=== PATIENT | male | born 1960 | race Caucasian/White ===

== ENCOUNTER → 2020-06-03 | Outpatient (CLI) | payer MEDICARE ==
[~2020-06-03] MED LIST: OMNIPAQUE 350 MG/ML, 150 ML BOTTLE ONE
== END | disposition home or self-care (01) ==
LOC: CFH 09:38
PROVIDERS: ATTEND Internal Medicine Cardiovascular Disease
DX: I48.91 Unspecified atrial fibrillation (principal); M25.70 Osteophyte, unspecified joint
CPT/HCPCS: 71046; 75572; 82565; Q9967

== ENCOUNTER → 2020-06-03 | Outpatient (CLI) | payer MEDICARE ==
[~2020-06-03] MED LIST changes: +ATOR20TA37 PO; +DILT120C64 PO; +FURO20TA3 PO; +METO25TA2 PO; -OMNIPAQUE 350 MG/ML, 150 ML BOTTLE ONE; +RIVA20TA PO; +TAMS-11 PO
== END | disposition home or self-care (01) ==
LOC: STAR 09:35
PROVIDERS: ATTEND Anesthesiology
DX: Z01.812 Encounter for preprocedural laboratory examination (principal); Z20.828 Contact with and (suspected) exposure to other viral communicable diseases
CPT/HCPCS: 36415; 87635

== ENCOUNTER 2020-06-09 05:53 | Observation (INO) | payer MEDICARE ==
[~2020-06-09] VITALS: Ht 195.6 cm; Wt 153.9 kg
[2020-06-09] MEDS ORDERED: SODIUM CHLORIDE 0.9% 1,000 ML IV SCH (06:21)
[2020-06-09] MEDS ORDERED: ATOR20TA37 PO (06:27)
[2020-06-09] MEDS ORDERED: METO25TA2 PO (06:27)
[2020-06-09] MEDS ORDERED: TAMS-11 PO (06:27)
[2020-06-09] MEDS ORDERED: RIVA20TA PO (06:27)
[2020-06-09] MEDS ORDERED: DILT120C64 PO (06:27)
[2020-06-09] MEDS ORDERED: FURO20TA3 PO (06:27)
[2020-06-09] MEDS ORDERED: SODIUM CHLORIDE 0.9% 1,000 ML IV ONE (06:30)
[2020-06-09 06:48] VITALS: BP 148/78
[2020-06-09] MEDS ORDERED: PLEASE ENTER HEIGHT AND WEIGHT MC SCH (07:00)
[2020-06-09 07:41] LABS: BASOPHILS # (AUTO) 0.06 x10^3/uL (0-0.1); BASOPHILS % (AUTO) 1 % (0-1); EOSINOPHILS # (AUTO) 0.21 x10^3/uL (0-0.4); EOSINOPHILS % (AUTO) 2 % (1-7); LYMPHOCYTES # (AUTO) 3.96 x10^3/uL (1-3.4); LYMPHOCYTES % (AUTO) 41 % (22-44); MD NO; MEAN CORPUSCULAR HEMOGLOBIN 30.6 pg (27.5-34.5); MEAN CORPUSCULAR HGB CONC 33.1 g/dL (33.2-36.2); MEAN CORPUSCULAR VOLUME 92.6 fL (81-97); MEAN PLATELET VOLUME 8.5 fL (7.4-10.4); MONOCYTES # (AUTO) 1.01 x10^3/uL (0.2-0.8); MONOCYTES % (AUTO) 11 % (2-9); NEUTROPHILS # (AUTO) 4.45 x10^3/uL (1.8-6.8); NEUTROPHILS % (AUTO) 46 % (42-75); PLATELET COUNT 182 x10^3/uL (130-400); RED BLOOD COUNT 4.74 x10^6/uL (4.38-5.82); RED CELL DISTRIBUTION WIDTH 14.4 % (9.4-14.8)
[2020-06-09] MEDS ORDERED: MIDAZOLAM 1 MG/ML, 2ML ONE (07:44)
[2020-06-09] MEDS ORDERED: FENTANYL PF 250 MCG/5ML ONE (07:45)
[2020-06-09 07:48] LABS: ANION GAP 7 mmol/L (5-15); CALCIUM 8.2 mg/dL (8.5-10.1); CHLORIDE 111 mmol/L (98-107); CREATININE 0.78 mg/dL (0.7-1.3)
[2020-06-09] MEDS ORDERED: ACETAMINOPHEN 325 MG TABLET PO PRN (08:00)
[2020-06-09] MEDS ORDERED: FENTANYL PF 100 MCG/2ML IV PRN (08:00)
[2020-06-09] MEDS ORDERED: hydrALAzine 20 MG/ML, 1ML IV PRN (08:00)
[2020-06-09] MEDS ORDERED: OXYcodone 5 MG/5 ML ORAL.SOL UDC PO PRN (08:00)
[2020-06-09] MEDS ORDERED: PROMETHAZINE 25 MG/ML, 1ML IVPush PRN (08:00)
[2020-06-09] MEDS ORDERED: MEPERIDINE/PF 25MG/0.5ML IVPush PRN (08:00)
[2020-06-09] MEDS ORDERED: EPHEDRINE 50 MG/ML, 1ML IVPush PRN (08:00)
[2020-06-09] MEDS ORDERED: ONDANSETRON 2MG/ML, 2ML IVPush PRN (08:00)
[2020-06-09] MEDS ORDERED: LABETALOL 5MG/ML, 20ML IV PRN (08:00)
[2020-06-09] MEDS ORDERED: HEPARIN 1,000 UNITS/ML, 10ML ONE ×3 (08:10→09:07)
[2020-06-09] MEDS ORDERED: PHENYLEPHRINE 10 MG/ML ONE (08:10)
[2020-06-09] MEDS ORDERED: LIDOCAINE 1%, 20ML ONE (08:14)
[2020-06-09] MEDS ORDERED: ONDANSETRON 2MG/ML, 2ML ONE (08:21)
[2020-06-09] MEDS ORDERED: SUGAMMADEX 200 MG/2 ML IVPush ONE (08:21)
[2020-06-09] MEDS ORDERED: DEXAMETHASONE 4 MG/ML, 1ML ONE (08:21)
[2020-06-09] MEDS ORDERED: SUCCINYLCHOLINE 20 MG/ML, 10ML ONE (08:21)
[2020-06-09] MEDS ORDERED: ROCURONIUM 10MG/ML,5ML ONE (08:21)
[2020-06-09] MEDS ORDERED: PROPOFOL 10 MG/ML, 20ML ONE (08:21)
[2020-06-09] MEDS ORDERED: LIDOCAINE-MPF 2% ,5ML ONE (09:07)
[2020-06-09] MEDS ORDERED: ISOPROTERENOL 0.2MG/ML, 5ML ONE (09:14)
[2020-06-09] MEDS ORDERED: RIVAROXABAN 20 MG TABLET PO SCH (12:00)
[2020-06-09] MEDS ORDERED: MORPHINE SULFATE 4 MG/ML, 1ML ONE (13:07)
[2020-06-09] MEDS ORDERED: OXYcodone 5 MG/5 ML ORAL.SOL UDC ONE (13:07)
[2020-06-09] MEDS: RIVAROXABAN 20 MG TABLET PO SCH (13:20)
[2020-06-09] MEDS ORDERED: morphine SULFATE 10 MG/ML, 1ML IVPush PRN (13:30)
[2020-06-09 19:17] VITALS: BP 145/76
[2020-06-09] MEDS: COLCHICINE 0.6 MG CAPSULE PO SCH (20:09)
[2020-06-10 00:14] VITALS: BP 114/58
[2020-06-10 08:30] VITALS: BP 146/73
[2020-06-10] MEDS: COLCHICINE 0.6 MG CAPSULE PO SCH (08:34)
[2020-06-10] MEDS: RIVAROXABAN 20 MG TABLET PO SCH (08:34)
[2020-06-10] MEDS ORDERED: COLC0.6C3 PO (08:47)
[2020-06-10] MEDS ORDERED: DILTIAZEM 120 MG CAP.ER.24H PO SCH (09:00)
[2020-06-10] MEDS ORDERED: FUROSEMIDE 20 MG TABLET PO SCH (09:00)
[2020-06-10] MEDS ORDERED: TAMSULOSIN 0.4 MG CAP.ER.24H PO SCH (09:00)
[2020-06-10] MEDS ORDERED: ATORVASTATIN 20 MG TABLET PO SCH (09:00)
[2020-06-10] MEDS ORDERED: METOPROLOL SUCCINATE 25 MG TAB.ER.24H PO SCH (09:00)
== END 2020-06-10 10:40 | disposition home or self-care (01) ==
LOC: CACL 05:53 → ORIP 11:56 → 5SO 13:42 → DCLOUNGE 06-10 10:32
PROVIDERS: ADMIT Internal Medicine Cardiovascular Disease; ATTEND Internal Medicine Cardiovascular Disease
DX: I48.91 Unspecified atrial fibrillation (principal); I48.3 Typical atrial flutter; I10 Essential (primary) hypertension; E78.5 Hyperlipidemia, unspecified; G47.30 Sleep apnea, unspecified; F15.10 Other stimulant abuse, uncomplicated; F12.10 Cannabis abuse, uncomplicated; Z79.899 Other long term (current) drug therapy
CPT/HCPCS: 36415; 80048; 85025; 85347; 93306; 93312; 93321; 93325; 93613; 93655; 93656; 93662; C1730; C1732; C1759; C1766; C1893; C1894; G0378; J0330; J1100; J1644; J2250; J2270; J2370; J2405; J2704; J3010; J3490

== ENCOUNTER 2020-09-01 09:56 | Day surgery (SDC) | payer MEDICARE ==
[~2020-09-01] VITALS: Ht 195.6 cm; Wt 150.5 kg
[~2020-09-01 09:56] MED LIST changes: +COLC0.6C3 PO
[2020-09-01 10:45] VITALS: BP 129/59
[2020-09-01 10:58] LABS: BASOPHILS % (AUTO) 1 % (0-1); EOSINOPHILS % (AUTO) 2 % (1-7); LYMPHOCYTES % (AUTO) 42 % (22-44); MEAN CORPUSCULAR HEMOGLOBIN 31.9 pg (27.5-34.5); MEAN CORPUSCULAR HGB CONC 34.3 g/dL (33.2-36.2); MONOCYTES % (AUTO) 9 % (2-9); NEUTROPHILS % (AUTO) 47 % (42-75); PLATELET COUNT 192 x10^3/uL (130-400); RED BLOOD COUNT 5.13 x10^6/uL (4.38-5.82); RED CELL DISTRIBUTION WIDTH 12.7 % (9.4-14.8)
[2020-09-01 10:59] LABS: MD NO
[2020-09-01 11:09] LABS: ANION GAP 6 mmol/L (5-15); CALCIUM 8.8 mg/dL (8.5-10.1); CHLORIDE 109 mmol/L (98-107); CREATININE 0.93 mg/dL (0.7-1.3)
[2020-09-01] MEDS ORDERED: PROPOFOL 10 MG/ML, 20ML ONE (11:38)
== END 2020-09-01 12:46 | disposition home or self-care (01) ==
LOC: CACL 09:56
PROVIDERS: ATTEND Internal Medicine Clinical Cardiac Electrophysiology
DX: I48.92 Unspecified atrial flutter (principal); I48.0 Paroxysmal atrial fibrillation; I45.10 Unspecified right bundle-branch block; I10 Essential (primary) hypertension; E78.5 Hyperlipidemia, unspecified; G47.30 Sleep apnea, unspecified; F12.10 Cannabis abuse, uncomplicated; Z79.01 Long term (current) use of anticoagulants; Z79.899 Other long term (current) drug therapy; Z87.891 Personal history of nicotine dependence; Z88.1 Allergy status to other antibiotic agents
CPT/HCPCS: 36415; 80048; 85025; 92960; J2704

== ENCOUNTER → 2020-12-16 | Outpatient (CLI) | payer MEDICARE ==
[~2020-12-16] MED LIST changes: +SOTA80TA PO
[2020-12-16 14:26] LABS: ALANINE AMINOTRANSFERASE 41 U/L (12-78); ALBUMIN 3.9 g/dL (3.4-5.0); ANION GAP 3 mmol/L (5-15); CALCIUM 8.6 mg/dL (8.5-10.1); CHLORIDE 110 mmol/L (98-107); CREATININE 0.88 mg/dL (0.7-1.3)
[2020-12-16 14:28] LABS: ALKALINE PHOSPHATASE 74 U/L (45-117); BILIRUBIN,TOTAL 1.1 mg/dL (0.2-1.0)
== END | disposition home or self-care (01) ==
LOC: STAR 13:08
PROVIDERS: ATTEND Surgery
DX: Z01.818 Encounter for other preprocedural examination (principal); K43.2 Incisional hernia without obstruction or gangrene; I45.10 Unspecified right bundle-branch block; R00.1 Bradycardia, unspecified; Z20.822 Contact with and (suspected) exposure to COVID-19
CPT/HCPCS: 36415; 80053; 93005; U0003

== ENCOUNTER 2020-12-21 10:03 | Day surgery (SDC) | payer MEDICARE ==
[~2020-12-21] VITALS: Ht 195.6 cm; Wt 148.9 kg
[2020-12-21] MEDS ORDERED: LACTATED RINGERS 1,000 ML IV SCH (10:30)
[2020-12-21] MEDS ORDERED: CHLORHEXIDINE 15 ML UDC PO ONE (10:30)
[2020-12-21 10:32] VITALS: BP 113/77
[2020-12-21] MEDS ORDERED: FENTANYL PF 250 MCG/5ML ONE ×2 (13:59→15:58)
[2020-12-21] MEDS ORDERED: MIDAZOLAM 1 MG/ML, 2ML ONE ×2 (13:59→15:58)
[2020-12-21] MEDS ORDERED: BUPIVACAINE/PF 0.5% ONE (15:13)
[2020-12-21] MEDS ORDERED: EPINEPHRINE 1 MG/ML, 1ML ONE (15:13)
[2020-12-21] MEDS ORDERED: KETOROLAC 30 MG/1 ML ONE (17:15)
[2020-12-21] MEDS ORDERED: SUGAMMADEX 200 MG/2 ML IVPush ONE (17:15)
[2020-12-21] MEDS ORDERED: NEOSTIGMINE 1 MG/ML, 10ML ONE (18:45)
[2020-12-21] MEDS ORDERED: SUCCINYLCHOLINE 20 MG/ML, 10ML ONE (18:45)
[2020-12-21] MEDS ORDERED: ONDANSETRON 2MG/ML, 2ML ONE ×2 (18:45)
[2020-12-21] MEDS ORDERED: PROPOFOL 10 MG/ML, 20ML ONE (18:45)
[2020-12-21] MEDS ORDERED: GLYCOPYRROLATE 0.2MG/1ML, 5ML ONE (18:45)
[2020-12-21] MEDS ORDERED: ROCURONIUM 10MG/ML,5ML ONE (18:45)
[2020-12-21] MEDS ORDERED: DEXAMETHASONE 4 MG/ML, 1ML ONE (18:45)
[2020-12-21] MEDS ORDERED: CEFAZOLIN 1,000 MG ONE (18:45)
[2020-12-21] MEDS ORDERED: OXYC5CAP2 PO (20:24)
== END 2020-12-21 20:30 | disposition home or self-care (01) ==
LOC: OUT 10:03
PROVIDERS: ATTEND Surgery
DX: K43.2 Incisional hernia without obstruction or gangrene (principal); K42.9 Umbilical hernia without obstruction or gangrene; K43.9 Ventral hernia without obstruction or gangrene; I10 Essential (primary) hypertension; E78.5 Hyperlipidemia, unspecified; G47.33 Obstructive sleep apnea (adult) (pediatric); E66.9 Obesity, unspecified; N40.0 Benign prostatic hyperplasia without lower urinary tract symptoms; I48.0 Paroxysmal atrial fibrillation; Z79.01 Long term (current) use of anticoagulants; Z87.891 Personal history of nicotine dependence; Z79.899 Other long term (current) drug therapy; Z88.5 Allergy status to narcotic agent; Z88.8 Allergy status to other drugs, medicaments and biological substances; Z99.81 Dependence on supplemental oxygen
CPT/HCPCS: 49652; 49654; C1781; J0171; J0330; J0690; J1100; J1885; J2250; J2405; J2704; J2710; J3010; J7120

== ENCOUNTER 2021-05-16 08:00 | Day surgery (SDC) | payer MEDICARE ==
[~2021-05-16] VITALS: Ht 195.6 cm; Wt 146.4 kg
[~2021-05-16 08:00] MED LIST changes: +OXYC5CAP2 PO
[2021-05-16] MEDS ORDERED: SODIUM CHLORIDE 0.9% 1,000 ML IV SCH (11:00)
[2021-05-16] MEDS ORDERED: PLEASE ENTER ALLERGIES MC SCH (11:30)
[2021-05-16] MEDS ORDERED: PLEASE ENTER HEIGHT AND WEIGHT MC SCH (11:30)
[2021-05-16 11:35] LABS: BASOPHILS % (AUTO) 1 % (0-1); EOSINOPHILS % (AUTO) 2 % (1-7); LYMPHOCYTES % (AUTO) 42 % (22-44); MEAN CORPUSCULAR HEMOGLOBIN 31.5 pg (27.5-34.5); MEAN CORPUSCULAR HGB CONC 34.4 g/dL (33.2-36.2); MEAN PLATELET VOLUME 9.4 fL (7.4-10.4); MONOCYTES % (AUTO) 8 % (2-9); NEUTROPHILS % (AUTO) 48 % (42-75); PLATELET COUNT 195 x10^3/uL (130-400); RED BLOOD COUNT 5.14 x10^6/uL (4.38-5.82); RED CELL DISTRIBUTION WIDTH 13.2 % (9.4-14.8)
[2021-05-16 11:38] VITALS: BP 132/74
[2021-05-16 11:45] LABS: ANION GAP 7 mmol/L (5-15); CALCIUM 8.3 mg/dL (8.5-10.1); CHLORIDE 107 mmol/L (98-107); CREATININE 0.91 mg/dL (0.7-1.3)
[2021-05-16] MEDS ORDERED: PROPOFOL 10 MG/ML, 20ML ONE (12:14)
== END 2021-05-16 14:02 | disposition home or self-care (01) ==
LOC: CACL 08:00
PROVIDERS: ATTEND Internal Medicine Clinical Cardiac Electrophysiology
DX: I48.92 Unspecified atrial flutter (principal); I48.91 Unspecified atrial fibrillation; I08.1 Rheumatic disorders of both mitral and tricuspid valves; I10 Essential (primary) hypertension; E78.5 Hyperlipidemia, unspecified; Z20.822 Contact with and (suspected) exposure to COVID-19; Z79.01 Long term (current) use of anticoagulants; Z79.899 Other long term (current) drug therapy; Z87.891 Personal history of nicotine dependence; Z88.5 Allergy status to narcotic agent
CPT/HCPCS: 36415; 80048; 85025; 87635; 92960; 93312; 93325; J2704